=== PATIENT | female | born 1950 | race Caucasian/White ===

== ENCOUNTER → 2023-12-21 07:10 | Outpatient (REF) | payer MEDICARE, OTHER, SELFPAY ==
[2023-12-21 09:59] LABS: Total Cholesterol 244 mg/dl (50-199); Triglyceride 97 mg/dl (10-149); Very Low Density Lipoprotein 19 mg/dl (0-30)
[2023-12-21 10:17] LABS: HDL Cholesterol 114 mg/dl; LDL Cholesterol, Calculated 111 mg/dl
== END ==
LOC: HWLAB 07:10
PROVIDERS: ATTENDING PHYSICIAN Internal Medicine Cardiovascular Disease; FAMILY PHYSICIAN Internal Medicine
DX: E78.5 Hyperlipidemia, unspecified (principal)
CPT/HCPCS: 36415; 80061